=== PATIENT | male | born 1995 | race Caucasian/White ===

== ENCOUNTER 2023-03-03 09:53 | Emergency (ER) | payer OTHER ==
[~2023-03-03] VITALS: Ht 175.3 cm; Wt 80.4 kg
[2023-03-03 09:53] VITALS: BP 140/89; TEMP 98.7; O2SAT 97
[2023-03-03] MEDS ORDERED: CYCL-707 PO (12:20)
[2023-03-03] MEDS ORDERED: KETO10TAB PO (12:20)
== END 2023-03-03 12:26 | disposition home or self-care (01) ==
LOC: M ED 09:53
DX: S39.012A Strain of muscle, fascia and tendon of lower back, initial encounter (principal); Y93.B3 Activity, free weights; X50.0XXA Overexertion from strenuous movement or load, initial encounter